=== PATIENT | male | born 1990 | race Caucasian/White ===

== ENCOUNTER 2025-03-23 19:32 | Emergency (ER) | payer OTHER ==
[~2025-03-23] VITALS: Ht 175.3 cm; Wt 84.1 kg
[2025-03-23 19:44] VITALS: TEMP 97.5
[2025-03-23 19:56] LABS: PLATELET COUNT (AUTO) 155 K/uL (150-450); RED BLOOD CELL COUNT(AUTO) 5.07 MIL/uL (4.50-5.90); RED CELL DISTRIBUTION WIDTH 12.7 % (11.5-14.5); WHITE BLOOD COUNT (AUTO) 6.5 K/uL (4.5-11.0)
[2025-03-23] MEDS ORDERED: SODIUM CHLORIDE 0.9% 100 ML ONE (20:07)
[2025-03-23] MEDS ORDERED: IOHEXOL 350 MG/ML 100 ML VIAL ONE (20:07)
[2025-03-23 20:12] LABS: CALCIUM, TOTAL 8.6 mg/dL (8.8-10.5); CREATININE 1.12 mg/dL (0.60-1.30); GLOMERULAR FILTR. RATE CALC > 60 mL/min (>60); GLUCOSE,RANDOM 103 mg/dL (70-110); SODIUM SERUM 138 mmol/L (136-145); UREA NITROGEN, BLOOD 17 mg/dL (7-18)
[2025-03-23 20:16] LABS: ASPARTATE AMINOTRANSFERASE 28.0 U/L (15-37); TOTAL PROTEIN, SERUM 7.2 g/dL (6.4-8.2)
[2025-03-23 20:21] LABS: TROPONIN I-HIGH SENSITIVITY 4 ng/L (<76)
[2025-03-23] MEDS: ACETAMINOPHEN 500 MG TABLET PO ONE (20:39)
[2025-03-23] MEDS: KETOROLAC TROMETHAMINE 30 MG/ML VIAL IVP ONE (20:51)
[2025-03-23 21:13] LABS: COVID AG,FIA SOURCE NASAL SWAB
[2025-03-23 21:32] LABS: RAPID GROUP A STREP NEGATIVE (NEGATIVE)
[2025-03-23 21:36] LABS: SARS-COV2 (COVID) ANTIGEN,FIA Negative (Negative)
[2025-03-23 21:37] LABS: INFLUENZA TYPE A NEGATIVE FOR TYPE A (NEGATIVE); INFLUENZA TYPE B NEGATIVE FOR TYPE B (NEGATIVE)
[2025-03-24 01:20] VITALS: BP 127/79; PULSE 65; RESP 15; O2SAT 98
== END 2025-03-24 01:38 | disposition home or self-care (01) ==
LOC: EMS 20:25
DX: R07.9 Chest pain, unspecified (principal); J02.9 Acute pharyngitis, unspecified; R51.9 Headache, unspecified; Z20.822 Contact with and (suspected) exposure to COVID-19
CPT/HCPCS: 99285; 96374; 70491; 71045; 87426; 80048; 80076; 84484; 85025; 87430; 87804; 36415; 93005; J1885; Q9967; J7050